=== PATIENT | female | born 1950 | race Caucasian/White ===

== ENCOUNTER 2019-08-16 18:35 | Inpatient (IN) ==
[2019-08-16] MEDS ORDERED: Azithromycin 500 MG in 0.9 % Sodium Chloride 250 ML IVPB ONE (19:15)
[2019-08-16] MEDS ORDERED: cefTRIAXone 1,000 MG in 0.9 % Sodium Chloride Mini Bag 100 ML IVPB ONE (19:15)
[2019-08-16] MEDS ORDERED: Ondansetron 4 MG/2 ML VIAL IVP ONE (19:15)
[2019-08-16 19:24] LABS: Basophils # 0.1 K/mcL (0.0-0.2); Basophils % 0.5 %; Eosinophils # 0.1 K/mcL (0.0-0.6); Eosinophils % 1.3 %; Hematocrit 36.9 % (35.3-44.9); Hemoglobin 12.1 g/dL (11.5-15.4); Immature Granulocytes % 0.6 % (0-4); Lymphocytes # 1.5 K/mcL (0.6-4.6); Lymphocytes % 15.4 %; Mean Corpuscular HGB Conc 32.8 g/dL (31.6-35.5); Mean Corpuscular Hemoglobin 29.2 pg (28.0-33.3); Mean Corpuscular Volume 89.1 fL (83.0-100.0); Mean Platelet Volume 10.2 fL (9.4-12.4); Monocytes # 0.6 K/mcL (0.0-1.3); Monocytes % 6.4 %; Neutrophils # 7.6 K/mcL (1.6-8.9); Platelet Count 231 K/mcL (140-400); Red Blood Count 4.14 M/mcL (3.82-4.97); Red Cell Distribution Width 12.4 % (11.5-14.5); Segmented Neutrophils % 75.8 %
[2019-08-16 19:30] LABS: ABG Base Excess 2 mEq/L (-2 to 3); ABG HCO3 26 mEq/L (21-27); ABG Oxygen Saturation 91 % (95-98); ABG PCO2 36 mmHg (35-45); ABG PH 7.47 pH Units (7.32-7.45); ABG PO2 57 mmHg (85-104); ABG TCO2 27 mEq/L (20-26)
[2019-08-16 19:31] LABS: INR 1.1; Prothrombin Time 12.9 Seconds (9.4-12.1)
[2019-08-16 19:33] LABS: Activated Partial Thrombo Time 31.7 Seconds (26.0-36.0)
--- NOTE | 2019-08-16 19:48 | Emergency Department Note ---
Disposition Clinical Impression: Acute CHF Qualifiers: Heart failure type: unspecified Qualified Code(s): I50.9 - Heart failure, unspecified Pneumonia Qualifiers: Pneumonia type: due to unspecified organism Laterality: unspecified laterality Lung location: unspecified part of lung Qualified Code(s): J18.9 - Pneumonia, unspecified organism Disposition: Admitted As Inpatient Condition: Fair Forms: ED Satisfaction Letter Time of Disposition: 21:15 General Adult HPI - General Chief complaint: ED Chest Pain Stated complaint: CP,MONSALVE Time Seen by Provider: 08/16/19 18:56 Source: patient Nursing Notes Reviewed: Yes Vital Signs Reviewed: Yes - History of Present Illness HPI Narrative: This is a 69-year-old female who presents today with a complaint of generalized body aches, congestion, chest pain for the past 2-3 days. She describes chest pain as aching, nonradiating. She also complains of dyspnea. Patient also describes a slight gradual onset headache for the past day. She denies any focal neurologic complaints. She denies any weakness. She denies any vomiting or diarrhea. She describes symptoms as moderate. There are no obvious aggravating or relieving factors. Pain Scale: 6 Improves with: nothing Worsens with: nothing - Related Data Home Medications Medication Instructions Recorded Confirmed Aspirin 81 mg PO DAILY 08/16/19 08/16/19 Bumetanide [Bumex] 2 mg PO DAILY 08/16/19 08/16/19 Duloxetine HCl 90 mg PO HS 08/16/19 08/16/19 Isosorbide MONOnitrate [Isosorbide 30 mg PO DAILY 08/16/19 08/16/19 Mononitrate ER] LORazepam [Ativan] 0.5 mg PO DAILY PRN 08/16/19 08/16/19 Liraglutide [Victoza 3-Martin] 0.6 mg SQ DAILY 08/16/19 08/16/19 Lisinopril [Zestril] 20 mg PO BID 08/16/19 08/16/19 Rivaroxaban [Xarelto] 20 mg PO QPM 08/16/19 08/16/19 Simvastatin [Zocor] 40 mg PO HS 08/16/19 08/16/19 Spironolactone [Aldactone] 25 mg PO DAILY 08/16/19 08/16/19 Allergies Allergy/AdvReac Type Severity Reaction Status Date / Time Amoxicillin Allergy Irritable Verified 08/16/19 19:32 All systems ED: reviewed and negative except as stated. Constitutional: Reports: fever, chills ENT ED: Reports: congestion Cardiovascular: Reports: chest pain. Denies: palpitations, dyspnea on exertion Respiratory: Reports: cough, dyspnea Gastrointestinal: Denies: abdominal pain, nausea, vomiting Genitourinary: Denies: dysuria, frequency Musculoskeletal: Denies: neck pain Neurological: Reports: headache. Denies: numbness, paresthesias Past Medical History - Past Medical History Medical history: Reports: coronary artery disease, diabetes, hyperlipidemia, myocardial infarction - Social History Smoking Status: Never smoker Alcohol use: Reports: none Drug use: Reports: none Physical Exam - General Limitations: no limitations General appearance: alert - Head Head exam: atraumatic, normocephalic, normal inspection - Eye Eye exam: Present: normal appearance, PERRL, EOMI - Expanded Eye Exam Pupils: Left: reactive - ENT ENT exam: normal exam, normal oropharynx, mucous membranes moist - Expanded ENT Exam External ear exam: Present: normal external inspection Mouth exam: Present: normal external inspection Teeth exam: Present: normal inspection Throat exam: Present: normal inspection - Neck Neck exam: Present: normal inspection, full ROM, trachea midline, other (There is no meningismus.). Absent: meningismus - Chest Chest inspection: Present: normal inspection, symmetric chest wall rise - Respiratory Respiratory exam: Present: respiratory distress, accessory muscle use - Expanded Respiratory Exam Location: rales: Left, Right, rhonchi: Left, Right - Cardiovascular Cardiovascular exam: Present: regular rate, normal rhythm, tachycardia, normal heart sounds, other (There is bilateral peripheral edema.) - Abdominal Exam Abdominal exam: Present: soft, Non-Tender. Absent: tenderness, distention, guarding, rebound, rigidity - Extremities Exam Extremities exam: Present: normal inspection, full ROM, pedal edema. Absent: tenderness - Expanded Upper Extremity Exam Shoulder exam: Present: normal inspection, full ROM Arm exam: Present: normal inspection, full ROM Elbow exam: Present: normal inspection, full ROM Forearm/Wrist exam: Present: normal inspection, full ROM Hand exam: Present: normal inspection, full ROM Vascular exam: Normal: capillary refill, radial pulse - Expanded Lower Extremity Exam Hip/Pelvis exam: Present: normal inspection, full ROM Upper leg exam: Present: normal inspection, full ROM Knee exam: Present: normal inspection, full ROM Lower leg exam: Present: normal inspection, full ROM Ankle exam: Present: normal inspection, full ROM Foot/toe exam: Present: normal inspection, full ROM Neurovascular/Tendon exam: Absent: motor deficit, sensory deficit, tendon de ficit - Back Exam Back exam: Present: normal inspection, full ROM. Absent: tenderness - Neurological Exam Neurological exam: Present: alert, oriented X3, CN II-XII intact, other (There is no motor, sensory or cerebellar deficits. Nonfocal neurologic exam. GCS is 15.). Absent: motor sensory deficit - Expanded Neurological Exam Patient oriented to: Present: person, place, time Coma Scale Eye Opening: Spontaneous Coma Scale Motor Response: Obeys Commands Coma Scale Verbal Response: Oriented Coma Scale Total: 15 - Psychiatric Psychiatric exam: Present: normal affect, normal mood - Skin Skin exam: Present: warm, dry, intact, normal color Course Vital Signs Temperature 101.6 F H 08/16/19 18:42 Pulse Rate 108 08/16/19 18:42 Respiratory Rate 26 08/16/19 18:42 Blood Pressure 185/96 08/16/19 18:42 O2 Sat by Pulse Oximetry 88 08/16/19 18:42 Temperature 100.2 F H 08/16/19 21:09 Pulse Rate 98 08/16/19 21:09 Respiratory Rate 19 08/16/19 21:09 Blood Pressure 167/93 08/16/19 21:09 O2 Sat by Pulse Oximetry 99 08/16/19 21:09 Oxygen Delivery Oxygen Delivery Nasal Cannula Medical Decision Making - [facility] Narrative Medical decision making narrative: Differential diagnoses includes pneumonia versus CHF versus viral syndrome versus UTI. Given fever, tachycardia, hypoxia, patient meets sepsis criteria. We will check a lactate. We will hold off on IV fluids at this time given the concern for possible CHF in light of crackles and peripheral edema. We will also need to rule out acute coronary syndrome given complaints of chest pain. T here is no clinical suspicion for meningitis. EKG shows sinus tachycardia at 108 beats per minute. Normal axis. Normal intervals. No acute injury pattern. 2044 Patient reevaluated. Patient feels better. Chest x-ray is suggestive of CHF. Given that and peripheral edema, I will put her on Lasix. 2100 Patient's care discussed with the hospitalist. Will admit. - Medical Records Medical records reviewed: Yes I reviewed the patient's medical records. - Lab Data Lab results reviewed: Yes I reviewed the patient's lab results. Result diagrams: 08/16/19 19:00 08/16/19 19:00 Lab Results 08/16/19 08/16/19 08/16/19 Range/Units 19:00 19:00 19:00 WBC 10.0 (4.3-11.1) K/mcL RBC 4.14 (3.82-4.97) M/mcL Hgb 12.1 (11.5-15.4) g/dL Hct 36.9 (35.3-44.9) % MCV 89.1 (83.0-100.0) fL MCH 29.2 (28.0-33.3) pg MCHC 32.8 (31.6-35.5) g/dL RDW 12.4 (11.5-14.5) % Plt Count 231 (140-400) K/mcL MPV 10.2 (9.4-12.4) fL Immature Gran % 0.6 (0-4) % Seg Neutrophils % 75.8 % Lymphocytes % 15.4 % Monocytes % 6.4 % Eosinophils % 1.3 % Basophils % 0.5 % Neutrophils # 7.6 (1.6-8.9) K/mcL Lymphocytes # 1.5 (0.6-4.6) K/mcL Monocytes # 0.6 (0.0-1.3) K/mcL Eosinophils # 0.1 (0.0-0.6) K/mcL Basophils # 0.1 (0.0-0.2) K/mcL PT 12.9 H (9.4-12.1) Seconds INR 1.1 APTT 31.7 (26.0-36.0) Seconds Sample Site ABG pH (7.32-7.45) pH Units ABG pCO2 (35-45) mmHg ABG pO2 (85-104) mmHg ABG HCO3 (21-27) mEq/L ABG Total CO2 (20-26) mEq/L ABG O2 Saturation (95-98) % ABG Base Excess (-2 to 3) mEq/L Cleve Test O2 Delivery Device Inspired O2 (1-15=lpm [id number]=%) Sodium 137 (136-145) mEq/L Potassium 4.2 (3.5-5.1) mEq/L Chloride 101 (98-107) mEq/L Carbon Dioxide 26 (23-29) mEq/L BUN 24 H (8-23) mg/dL Creatinine 0.79 (0.60-1.20) mg/dL Est GFR ( Amer) > 60 (> 60) Est GFR (Non-Af Amer) > 60 (> 60) BUN/Creatinine Ratio 30 H (6-26) Glucose 414 H (70-105) mg/dL Calculated Osmolality 306 H (280-300) Lactic Acid (0.5-2.2) mmol/L Calcium 9.7 (8.6-10.3) mg/dL Phosphorus 2.6 L (2.7-4.5) mg/dL Magnesium 1.6 (1.6-2.6) mg/dL Total Bilirubin 0.5 (0.3-1.0) mg/dL Direct Bilirubin 0.1 (0.0-0.2) mg/dL Indirect Bilirubin 0.4 (0.0-1.2) mg/dL AST 13 (13-39) Units/L ALT 13 (7-52) Units/L Alkaline Phosphatase 85 (34-104) Units/L Troponin I < 0.03 (< 0.04) ng/mL B-Natriuretic Peptide (Less than 100) pg/mL Serum Total Protein 7.2 (6.4-8.9) g/dL Albumin 4.1 (3.5-5.7) g/dL Globulin 3.1 (2.4-3.5) g/dL Albumin/Globulin Ratio 1.3 (1.1-2.2) Urine Color (Yellow) Urine Clarity (Clear) Urine pH (5.0-8.0) pH Units Ur Specific [place] (1.010-1.025) Urine Protein (Neg-Trace) mg/dL Urine Glucose (UA) (Normal) mg/dL Urine Ketones (Negative) mg/dL Urine Blood (Negative) Urine Nitrite (Negative) Urine Bilirubin (Negative) Urine Urobilinogen (Normal) mg/dL Ur Leukocyte Esterase (Negative) Urine Microscopic RBC (0-3) per hpf Urine Microscopic WBC (0-3) per hpf Ur Squamous Epith Cells (None-Few) per lpf Urine Bacteria (None-Few) per hpf Hyaline Casts (None-Few) per lpf Ur Culture Indicated? (NO) 08/16/19 08/16/19 08/16/19 Range/Units 19:00 19:05 19:26 WBC (4.3-11.1) K/mcL RBC (3.82-4.97) M/mcL Hgb (11.5-15.4) g/dL Hct (35.3-44.9) % MCV (83.0-100.0) fL MCH (28.0-33.3) pg MCHC (31.6-35.5) g/dL RDW (11.5-14.5) % Plt Count (140-400) K/mcL MPV (9.4-12.4) fL Immature Gran % (0-4) % Seg Neutrophils % % Lymphocytes % % Monocytes % % Eosinophils % % Basophils % % Neutrophils # (1.6-8.9) K/mcL Lymphocytes # (0.6-4.6) K/mcL Monocytes # (0.0-1.3) K/mcL Eosinophils # (0.0-0.6) K/mcL Basophils # (0.0-0.2) K/mcL PT (9.4-12.1) Seconds INR APTT (26.0-36.0) Seconds Sample Site R Radial ABG pH 7.47 H (7.32-7.45) pH Units ABG pCO2 36 (35-45) mmHg ABG pO2 57 L (85-104) mmHg ABG HCO3 26 (21-27) mEq/L ABG Total CO2 27 H (20-26) mEq/L ABG O2 Saturation 91 L (95-98) % ABG Base Excess 2 (-2 to 3) mEq/L Cleve Test Positive O2 Delivery Device Cannula Inspired O2 40.0 (1-15=lpm [id number]=%) Sodium (136-145) mEq/L Potassium (3.5-5.1) mEq/L Chloride (98-107) mEq/L Carbon Dioxide (23-29) mEq/L BUN (8-23) mg/dL Creatinine (0.60-1.20) mg/dL Est GFR ( Amer) (> 60) Est GFR (Non-Af Amer) (> 60) BUN/Creatinine Ratio (6-26) Glucose (70-105) mg/dL Calculated Osmolality (280-300) Lactic Acid 2.6 H (0.5-2.2) mmol/L Calcium (8.6-10.3) mg/dL Phosphorus (2.7-4.5) mg/dL Magnesium (1.6-2.6) mg/dL Total Bilirubin (0.3-1.0) mg/dL Direct Bilirubin (0.0-0.2) mg/dL Indirect Bilirubin (0.0-1.2) mg/dL AST (13-39) Units/L ALT (7-52) Units/L Alkaline Phosphatase (34-104) Units/L Troponin I (< 0.04) ng/mL B-Natriuretic Peptide 145 H (Less than 100) pg/mL Serum Total Protein (6.4-8.9) g/dL Albumin (3.5-5.7) g/dL Globulin (2.4-3.5) g/dL Albumin/Globulin Ratio (1.1-2.2) Urine Color (Yellow) Urine Clarity (Clear) Urine pH (5.0-8.0) pH Units Ur Specific [place] (1.010-1.025) Urine Protein (Neg-Trace) mg/dL Urine Glucose (UA) (Normal) mg/dL Urine Ketones (Negative) mg/dL Urine Blood (Negative) Urine Nitrite (Negative) Urine Bilirubin (Negative) Urine Urobilinogen (Normal) mg/dL Ur Leukocyte Esterase (Negative) Urine Microscopic RBC (0-3) per hpf Urine Microscopic WBC (0-3) per hpf Ur Squamous Epith Cells (None-Few) per lpf Urine Bacteria (None-Few) per hpf Hyaline Casts (None-Few) per lpf Ur Culture Indicated? (NO) 08/16/19 Range/Units 20:48 WBC (4.3-11.1) K/mcL RBC (3.82-4.97) M/mcL Hgb (11.5-15.4) g/dL Hct (35.3-44.9) % MCV (83.0-100.0) fL MCH (28.0-33.3) pg MCHC (31.6-35.5) g/dL RDW (11.5-14.5) % Plt Count (140-400) K/mcL MPV (9.4-12.4) fL Immature Gran % (0-4) % Seg Neutrophils % % Lymphocytes % % Monocytes % % Eosinophils % % Basophils % % Neutrophils # (1.6-8.9) K/mcL Lymphocytes # (0.6-4.6) K/mcL Monocytes # (0.0-1.3) K/mcL Eosinophils # (0.0-0.6) K/mcL Basophils # (0.0-0.2) K/mcL PT (9.4-12.1) Seconds INR APTT (26.0-36.0) Seconds Sample Site ABG pH (7.32-7.45) pH Units ABG pCO2 (35-45) mmHg ABG pO2 (85-104) mmHg ABG HCO3 (21-27) mEq/L ABG Total CO2 (20-26) mEq/L ABG O2 Saturation (95-98) % ABG Base Excess (-2 to 3) mEq/L Cleve Test O2 Delivery Device Inspired O2 (1-15=lpm [id number]=%) Sodium (136-145) mEq/L Potassium (3.5-5.1) mEq/L Chloride (98-107) mEq/L Carbon Dioxide (23-29) mEq/L BUN (8-23) mg/dL Creatinine (0.60-1.20) mg/dL Est GFR ( Amer) (> 60) Est GFR (Non-Af Amer) (> 60) BUN/Creatinine Ratio (6-26) Glucose (70-105) mg/dL Calculated Osmolality (280-300) Lactic Acid (0.5-2.2) mmol/L Calcium (8.6-10.3) mg/dL Phosphorus (2.7-4.5) mg/dL Magnesium (1.6-2.6) mg/dL Total Bilirubin (0.3-1.0) mg/dL Direct Bilirubin (0.0-0.2) mg/dL Indirect Bilirubin (0.0-1.2) mg/dL AST (13-39) Units/L ALT (7-52) Units/L Alkaline Phosphatase (34-104) Units/L Troponin I (< 0.04) ng/mL B-Natriuretic Peptide (Less than 100) pg/mL Serum Total Protein (6.4-8.9) g/dL Albumin (3.5-5.7) g/dL Globulin (2.4-3.5) g/dL Albumin/Globulin Ratio (1.1-2.2) Urine Color Yellow (Yellow) Urine Clarity Clear (Clear) Urine pH 6.5 (5.0-8.0) pH Units Ur Specific [place] 1.026 H (1.010-1.025) Urine Protein >=300 H (Neg-Trace) mg/dL Urine Glucose (UA) >=1000 H (Normal) mg/dL Urine Ketones Negative (Negative) mg/dL Urine Blood Large H (Negative) Urine Nitrite Negative (Negative) Urine Bilirubin Negative (Negative) Urine Urobilinogen Normal (Normal) mg/dL Ur Leukocyte Esterase Negative (Negative) Urine Microscopic RBC 50-100 H (0-3) per hpf Urine Microscopic WBC 5-15 H (0-3) per hpf Ur Squamous Epith Cells Many H (None-Few) per lpf Urine Bacteria Few (None-Few) per hpf Hyaline Casts None Seen (None-Few) per lpf Ur Culture Indicated? YES A (NO) - Radiology Data Radiology results reviewed: Yes I reviewed the patient's radiology results.
[2019-08-16 19:50] LABS: Alanine Aminotransferase 13 Units/L (7-52); Albumin 4.1 g/dL (3.5-5.7); Albumin/Globulin Ratio 1.3 (1.1-2.2); Alkaline Phosphatase 85 Units/L (34-104); Aspartate Amino Transferase 13 Units/L (13-39); BUN/Creatinine Ratio 30 (6-26); Bilirubin,Direct 0.1 mg/dL (0.0-0.2); Bilirubin,Indirect 0.4 mg/dL (0.0-1.2); Bilirubin,Total 0.5 mg/dL (0.3-1.0); Blood Urea Nitrogen 24 mg/dL (8-23); Calcium 9.7 mg/dL (8.6-10.3); Carbon Dioxide 26 mEq/L (23-29); Chloride 101 mEq/L (98-107); Globulin 3.1 g/dL (2.4-3.5); Glucose 414 mg/dL (70-105); Magnesium 1.6 mg/dL (1.6-2.6); Osmolality,Calculated 306 (280-300); Phosphorous 2.6 mg/dL (2.7-4.5); Potassium 4.2 mEq/L (3.5-5.1); Sodium 137 mEq/L (136-145); Total Protein 7.2 g/dL (6.4-8.9); Troponin I < 0.03 ng/mL (< 0.04); eGFR For African Americans > 60 (> 60); eGFR For Non-African Americans > 60 (> 60)
[2019-08-16] MEDS ORDERED: Acetaminophen 325 MG TABLET PO ONE (20:06)
[2019-08-16] MEDS ORDERED: 0.9 % Sodium Chloride 250 ML ONE (20:33)
[2019-08-16] MEDS ORDERED: Furosemide 40 MG in 0.9 % Sodium Chloride 50 ML IV STA (20:35)
[2019-08-16] MEDS ORDERED: Furosemide 40 MG/4 ML VIAL IVP ONE (20:45)
[2019-08-16 20:54] LABS: Bilirubin,Urine Negative (Negative); Blood,Urine Large (Negative); Clarity,Urine Clear (Clear); Color,Urine Yellow (Yellow); Glucose,Urine (UA) >=1000 mg/dL (Normal); Ketones,Urine Negative (Negative); Leukocyte Esterase,Urine Negative (Negative); Nitrite,Urine Negative (Negative); PH,Urine 6.5 pH Units (5.0-8.0); Protein,Urine >=300 mg/dL (Neg-Trace); Specific Gravity,Urine 1.026 (1.010-1.025); Urobilinogen,Urine Normal (Normal)
[2019-08-16 20:58] LABS: Bacteria,Urine Few per hpf (None-Few); Hyaline Casts,Urine None Seen per lpf (None-Few); RBC,Urine 50-100 per hpf (0-3); Squamous Epithelial Cell,Urine Many per lpf (None-Few)
[2019-08-16] MEDS ORDERED: Insulin Human Regular 10 UNIT in 0.9 % Sodium Chloride 10 ML IV ONE (21:02)
[2019-08-16] MEDS ORDERED: GuaiFENesin Liq 200 MG/10 ML UDC PO PRN (22:02)
[2019-08-16] MEDS ORDERED: Acetaminophen 325 MG TABLET PO PRN (22:02)
[2019-08-16] MEDS ORDERED: Ondansetron 4 MG/2 ML VIAL IVP PRN (22:02)
[2019-08-16] MEDS ORDERED: *HR* LORazepam 0.5 MG TABLET PO PRN (22:04)
[2019-08-16] MEDS ORDERED: *HR* Dextrose 50 % in Water (Syg) 50 ML SYRINGE IVP PRN (22:09)
[2019-08-16] MEDS ORDERED: Dextrose Gel 15 GM/37.5 ML TUBE PO PRN ×2 (22:09)
[2019-08-16] MEDS ORDERED: Isovue-370 500 ML BOTTLE IVP ONE (22:23)
--- NOTE | 2019-08-16 23:28 | Internal Med History&Physical ---
Date of Encounter: 08/16/19 Time of Encounter: 23:27 Internal Medicine - H&P: HPI Chief complaint: fever Admitted From: Home Plans for Post Hospital Care: Home History of present illness: Patient not very forthcoming with information so a lot of history is obtained from family members at bedside. Kaylyn Lopez is a 69-year-old woman with hypertension, diabetes, coronary artery disease and obstructive sleep apnea who is brought to the emergency room with complaints of generalized body aches, facial congestion, chest pain, chills, headaches and shortness of breath that has been present for the last 2-3 days. Family members state that when they saw her this afternoon she appeared unwell but she denied any complaints so they went out to lunch but due to her overall appearance and notable discomfort they asked her again at which time she confessed feeling very ill so she was brought to the emergency room. On arrival she was found febrile at 101.6 and tachycardic. She was also hypoxic and required high volume nasal cannula. A chest x-ray was done which reported findings of pulmonary vascular congestion for which reason the ER physician gave her a dose of furosemide 40 mg. Lab work was grossly unremarkable except a mildly hyperglycemic state, lactic acid 2.6 and glucosuria. She was referred f or admission. Upon my evaluation she appeared notably fatigued with a flushed face. She reported feeling tired and having generalized myalgias and arthralgias. She says she lives alone and has no sick contacts. Vitals: Reviewed General: Obese white woman who appears fatigued lying in bed in no acute distress. Skin: Warm, flushed and dry. HEENT: Dry mucous membranes. No conjunctivae pallor. Neck: No lymphadenopathy. No JVD. No carotid bruits. No palpable thyroid. Chest: Normal thoracic expansion. No wheezes, rales or rhonchi. Heart: Normal S1/S2. Abdomen: distended, soft and non-tender to palpation. No peritoneal reaction. Extremities: No clubbing, cyanosis or edema. Right leg with the medial aspect surgical incision scar stemming from a previous fasciotomy. Neurological: Somnolent but oriented to person, place and time. No focal deficits. Psych: Affect flat. Assessment/Plan 1. Sepsis syndrome: As evidenced by fever, tachycardia, tachypnea and elevated lactic acid. Suspect secondary to an upper respiratory illness given the generalized constitutional symptoms present. No focal evidence of a pneumonia on x-ray, no signs of skin/soft tissue infection on physical exam, no signs of urinary tract infection both based on symptoms and UA. Will get a chest CT for more thorough evaluation to ensure there is no pneumonic consolidation. In the interim blood cultures have been obtained and she received an empiric dose of ceftriaxone and azithromycin. Check a respiratory infection panel to rule out a viral entity. Trend lactic acid. Antipyretics/analgesics as needed for now. 2. Dehydration: As noted on physical exam and corroborated by an elevated urinary specific gravity. Unfortunately she was given an intravenous diuretic simply based on the chest x-ray but her clinical appearance is that of a dehydrated state. Even the concomitant of sepsis as well and we will administer 2 liters of fluids overnight. 3. Hypertension: On lisinopril. She is seen to be on bumetanide and spironolactone as well for unclear reason; we will obtain an echo in the morning to assess her EF he may have underlying heart failure that she is not reporting. 4. Diabetes: Poorly controlled as evidenced by her hyperglycemic values. We will place on medium dose insulin sliding scale. 5. Coronary artery disease: s/p 2 stents. On aspirin and long-acting nitrates. 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 Past Med Surg Social Fam HX - Past Medical History Medical history: coronary artery disease, diabetes, hyperlipidemia, myocardial infarction - Past Surgical History Additional surgical history: skin graft, stents x2 - Social History Smoking Status: Never smoker Smokeless Tobacco Status: No Alcohol use: none Drug use: none - Family History Mother Hx Family Cancer: Yes Internal Medicine - H&P: Meds Aspirin 81 mg PO DAILY 08/16/19 [History] Bumetanide [Bumex] 2 mg PO DAILY 08/16/19 [History] Duloxetine HCl 90 mg PO HS 08/16/19 [History] Isosorbide MONOnitrate [Isosorbide Mononitrate ER] 30 mg PO DAILY 08/16/19 [History] LORazepam [Ativan] 0.5 mg PO DAILY PRN 08/16/19 [History] Liraglutide [Victoza 3-Martin] 0.6 mg SQ DAILY 08/16/19 [History] Lisinopril [Zestril] 20 mg PO BID 08/16/19 [History] Rivaroxaban [Xarelto] 20 mg PO QPM 08/16/19 [History] Simvastatin [Zocor] 40 mg PO HS 08/16/19 [History] Spironolactone [Aldactone] 25 mg PO DAILY 08/16/19 [History] Allergy/AdvReac Type Severity Reaction Status Date / Time Amoxicillin Allergy Irritable Verified 08/16/19 19:32 All Systems PM: A 10-system review of systems was performed and is negative for pertinent findings except as documented above in the HPI. - Constitutional Vitals: Temp Pulse Resp BP Pulse Ox 99 F 92 24 149/79 97 08/16/19 22:30 08/16/19 22:30 08/16/19 22:30 08/16/19 22:30 08/16/19 22:30 Exam: . Internal Med - H&P Results - Labs CBC & Chem 7: 08/16/19 19:00 08/16/19 19:00 Labs: Short CBC 08/16/19 Range/Units 19:00 WBC 10.0 (4.3-11.1) K/mcL Hgb 12.1 (11.5-15.4) g/dL Hct 36.9 (35.3-44.9) % Plt Count 231 (140-400) K/mcL Neutrophils # 7.6 (1.6-8.9) K/mcL BMP 08/16/19 19:00 Sodium 137 Potassium 4.2 Chloride 101 Carbon Dioxide 26 BUN 24 H Creatinine 0.79 Glucose 414 H Calcium 9.7 Cardiac Enzymes 08/16/19 Range/Units 19:00 Troponin I < 0.03 (< 0.04) ng/mL Liver Function 08/16/19 Range/Units 19:00 Total Bilirubin 0.5 (0.3-1.0) mg/dL Direct Bilirubin 0.1 (0.0-0.2) mg/dL AST 13 (13-39) Units/L ALT 13 (7-52) Units/L Alkaline Phosphatase 85 (34-104) Units/L Albumin 4.1 (3.5-5.7) g/dL Urine 08/16/19 Range/Units 20:48 Urine Color Yellow (Yellow) Urine Clarity Clear (Clear) Urine pH 6.5 (5.0-8.0) pH Units Ur Specific [place] 1.026 H (1.010-1.025) Urine Protein >=300 H (Neg-Trace) mg/dL Urine Glucose (UA) >=1000 H (Normal) mg/dL - ABG Interpretation ABG results: 08/16/19 19:26 ABG pH 7.47 H ABG pCO2 36 ABG pO2 57 L ABG HCO3 26 ABG Total CO2 27 H ABG O2 Saturation 91 L ABG Base Excess 2 - Impressions ITS Impressions Chest X-Ray 08/16/19 19:45 IMPRESSION: 1. Congestive heart failure is most likely given the radiographic findings. Associated small volume pleural effusion evident bilateral. 2. Calcific atherosclerosis aorta. 3. Cardiomegaly. D/ / Robert Urbina / Robert Urbina Interpreting Provider: Robert Urbina - Time Spent With Patient Total time spent is greater than 50% in coordination of care (as documented) at patient's floor/unit and/or counseling patient:
[2019-08-16] MEDS: 0.9 % Sodium Chloride 1,000 ML IVC SCH (23:52)
[2019-08-17 02:19] LABS: Adenovirus Not Detected (Not Detect); Bordetella Pertussis Not Detected (Not Detect); Chlamydophila pneumoniae Not Detected (Not Detect); Coronavirus 229E Not Detected (Not Detect); Coronavirus HKU1 Not Detected (Not Detect); Coronavirus NL63 Not Detected (Not Detect); Coronavirus OC43 Not Detected (Not Detect); Human Metapneumovirus Not Detected (Not Detect); Human Rhinovirus/Enterovirus DETECTED (Not Detect); Influenza A Subtype 2009 H1 Not Detected (Not Detect); Influenza A Untypeable Not Detected (Not Detect); Influenza B Not Detected (Not Detect); Mycoplasma pneumoniae Not Detected (Not Detect); Parainfluenza Virus 1 Not Detected (Not Detect); Parainfluenza Virus 2 Not Detected (Not Detect); Parainfluenza Virus 3 Not Detected (Not Detect); Parainfluenza Virus 4 Not Detected (Not Detect); Respiratory Syncytial Virus Not Detected (Not Detect)
[2019-08-17] MEDS ORDERED: 0.9 % Sodium Chloride 1,000 ML ONE (02:30)
[2019-08-17] MEDS: 0.9 % Sodium Chloride 1,000 ML IVC SCH (02:31)
[2019-08-17] MEDS: Insulin LISPRO 300 UNITS/3 ML VIAL SQ SCH ×4 (08:16→22:16)
[2019-08-17] MEDS: Lisinopril 20 MG TABLET PO SCH (08:17)
[2019-08-17] MEDS: Insulin DETEMIR 100 UNIT/ML X5UNITS SQ SCH ×2 (08:17→22:16)
[2019-08-17] MEDS: Isosorbide MONOnitrate (24 HR) 30 MG TAB.ER.24H PO SCH (08:17)
[2019-08-17] MEDS: Aspirin 81 MG TAB.CHEW PO SCH (08:17)
[2019-08-17] MEDS ORDERED: D5% in Water 1,000 ML IVC PRN (08:18)
--- NOTE | 2019-08-17 10:15 | Internal Med Progress Note ---
Hospitalist Progress Note - Encounter Date of Encounter: 08/17/19 Time of Encounter: 08:00 - Subjective Interval History: H&P reviewed. 69 year old female with hx of HTN, DM, CAD, RODNEY, was admitted overnight due to generalized malaise and fever. She was also noted to be mildly hypoxic at 88% on RA. Was given IV lasix initially followed by IVF due to lactic acidosis, after which it normalized. Continues to report generalized bodyaches but denies any chest pain, cough, sputum production, or chills. No abdominal pain, change in bowel habits, or dysuria. - Exam Vitals: Temp Pulse Resp BP Pulse Ox 98.8 F 82 26 130/81 95 08/17/19 06:40 08/17/19 06:40 08/17/19 08:26 08/17/19 06:40 08/17/19 06:40 Exam: Vitals: Reviewed General: Obese, mild distress Skin: Warm, flushed and dry. Chest: Normal thoracic expansion. No wheezes, rales or rhonchi. Heart: Normal S1/S2. Abdomen: soft, non-tender Neurological: No focal deficits. Psych: Anxious - Assessment and Plan (1) Sepsis Current Visit: Yes Status: Acute Assessment and Plan: Presented with fever, tachycardia, and tachypnea entero/rhinovirus +ve, no evidence of PNA on CT but did show mild bronchial wall thickening Urinalysis unremarkable except for proteinuria and glucosuria no leukocytosis likely related to viral infection, was given IV Scar/azithromycin in the ED yesterday. WIll complete 5 days of azithromycin for bronchitis Follow-up on blood culture (2) Bronchitis Current Visit: Yes Status: Acute Assessment and Plan: empiric azithromycin x 5 days (3) CHF (congestive heart failure) Current Visit: Yes Status: Acute Assessment and Plan: there was a question of pulmonary edema secondary to congestive heart failure on imaging studies BNP minimally elevated at 145 was given lasix overnight, will hold off for today while waiting for echocardiogram (4) Diabetes Current Visit: Yes Status: Chronic Assessment and Plan: Hold off on Victoza medium dose sliding scale, add basal insulin 10U BID (5) HTN (hypertension) Current Visit: Yes Status: Chronic Assessment and Plan: Resume home meds (6) RODNEY (obstructive sleep apnea) Current Visit: Yes Status: Acute (7) History of venous thromboembolism Current Visit: Yes Status: Chronic Assessment and Plan: on Xarelto DVT Prophylaxis: on Xarelto - Time Spent with Patient Total time spent is greater than 50% in coordination of care (as documented) at patient's floor/unit and/or counseling patient: 25 - 35 minutes Plan of Care Discussed with: patient Internal Medicine: Result - Labs CBC & Chem 7: 08/16/19 19:00 08/16/19 19:00 Labs: Short CBC 08/16/19 Range/Units 19:00 WBC 10.0 (4.3-11.1) K/mcL Hgb 12.1 (11.5-15.4) g/dL Hct 36.9 (35.3-44.9) % Plt Count 231 (140-400) K/mcL Neutrophils # 7.6 (1.6-8.9) K/mcL BMP 08/16/19 19:00 Sodium 137 Potassium 4.2 Chloride 101 Carbon Dioxide 26 BUN 24 H Creatinine 0.79 Glucose 414 H Calcium 9.7 Cardiac Enzymes 08/16/19 Range/Units 19:00 Troponin I < 0.03 (< 0.04) ng/mL Liver Function 08/16/19 Range/Units 19:00 Total Bilirubin 0.5 (0.3-1.0) mg/dL Direct Bilirubin 0.1 (0.0-0.2) mg/dL AST 13 (13-39) Units/L ALT 13 (7-52) Units/L Alkaline Phosphatase 85 (34-104) Units/L Albumin 4.1 (3.5-5.7) g/dL Urine 08/16/19 Range/Units 20:48 Urine Color Yellow (Yellow) Urine Clarity Clear (Clear) Urine pH 6.5 (5.0-8.0) pH Units Ur Specific [place] 1.026 H (1.010-1.025) Urine Protein >=300 H (Neg-Trace) mg/dL Urine Glucose (UA) >=1000 H (Normal) mg/dL - ABG Interpretation ABG results: ABG ABG pH 7.47 pH Units (7.32-7.45) H 08/16/19 19:26 ABG pCO2 36 mmHg (35-45) 08/16/19 19:26 ABG pO2 57 mmHg (85-104) L 08/16/19 19:26 ABG O2 Saturation 91 % (95-98) L 08/16/19 19:26 PT/INR, D-dimer PT 12.9 Seconds (9.4-12.1) H 08/16/19 19:00 - Impressions Impressions Chest X-Ray 08/16/19 19:45 IMPRESSION: 1. Congestive heart failure is most likely given the radiographic findings. Associated small volume pleural effusion evident bilateral. 2. Calcific atherosclerosis aorta. 3. Cardiomegaly. D/ / Robert Urbina / Robert Urbina Interpreting Provider: Robert Urbina Chest CT 08/17/19 00:42 IMPRESSION: 1. Pulmonary edema likely due to congestive heart failure given mild cardiomegaly and trace bilateral pleural effusions. 2. Minimal to mild bronchial wall thickening likely due to pulmonary vascular congestion but also potentially due to reactive airways disease or bronchitis. 3. Additional incidental findings as above. D/ / Eliezer Joyner MD / Eliezer Joyner MD Interpreting Provider: Eliezer Joyner MD - VTE Documentation of Mechanical Device: Graduated compression elastic hosiery Consult Discharge Plan - Plan Referrals: Mina Spencer MD [Primary Care Provider] - __ (1) Sepsis Qualifiers: Sepsis type: sepsis due to unspecified organism Sepsis acute organ dysfunction status: without acute organ dysfunction Qualified Code(s): A41.9 - Sepsis, unspecified organism (3) CHF (congestive heart failure) Qualifiers: Heart failure type: unspecified Heart failure chronicity: unspecified Qualified Code(s): I50.9 - Heart failure, unspecified (4) Diabetes Qualifiers: Diabetes mellitus type: type 2 Diabetes mellitus group home insulin use: without group home use Diabetes mellitus complication status: without complication Qualified Code(s): E11.9 - Type 2 diabetes mellitus without c omplications (5) HTN (hypertension) Qualifiers: Hypertension type: essential hypertension Qualified Code(s): I10 - Essential (primary) hypertension
[2019-08-17] MEDS: Azithromycin 250 MG TABLET PO SCH (12:37)
[2019-08-17] MEDS ORDERED: *HR* Rivaroxaban 10 MG TABLET PO SCH (18:00)
[2019-08-18 07:02] LABS: Basophils % 0.5 %; Eosinophils # 0.2 K/mcL (0.0-0.6); Eosinophils % 2.5 %; Hematocrit 30.2 % (35.3-44.9); Immature Granulocytes % 0.6 % (0-4); Lymphocytes # 1.7 K/mcL (0.6-4.6); Lymphocytes % 19.9 %; Mean Corpuscular HGB Conc 32.1 g/dL (31.6-35.5); Mean Corpuscular Hemoglobin 29.3 pg (28.0-33.3); Mean Corpuscular Volume 91.2 fL (83.0-100.0); Mean Platelet Volume 10.4 fL (9.4-12.4); Monocytes # 0.7 K/mcL (0.0-1.3); Monocytes % 8.1 %; Neutrophils # 5.7 K/mcL (1.6-8.9); Platelet Count 206 K/mcL (140-400); Red Blood Count 3.31 M/mcL (3.82-4.97); Red Cell Distribution Width 12.4 % (11.5-14.5); Segmented Neutrophils % 68.4 %; White Blood Count 8.4 K/mcL (4.3-11.1)
[2019-08-18 07:06] LABS: Hemoglobin 9.7 g/dL (11.5-15.4)
[2019-08-18 07:17] LABS: Calcium 8.7 mg/dL (8.6-10.3); Magnesium 1.9 mg/dL (1.6-2.6); Potassium 4.5 mEq/L (3.5-5.1)
[2019-08-18] MEDS: Isosorbide MONOnitrate (24 HR) 30 MG TAB.ER.24H PO SCH (07:58)
[2019-08-18] MEDS: Aspirin 81 MG TAB.CHEW PO SCH (07:58)
[2019-08-18] MEDS: Lisinopril 20 MG TABLET PO SCH (07:58)
[2019-08-18] MEDS: Insulin LISPRO 300 UNITS/3 ML VIAL SQ SCH ×4 (07:59→20:07)
[2019-08-18] MEDS: Insulin DETEMIR 100 UNIT/ML X5UNITS SQ SCH ×2 (08:58→20:07)
[2019-08-18] MEDS: Azithromycin 250 MG TABLET PO SCH (08:58)
--- NOTE | 2019-08-18 09:39 | Internal Med Progress Note ---
Hospitalist Progress Note - Encounter Date of Encounter: 08/18/19 Time of Encounter: 08:00 - Subjective Interval History: Patient states that she feels stronger today. Denies any chest pain, shortness of breath, hematemesis, hemoptysis, melena, hematochezia, or bright red blood per rectum. Remain afebrile >24 hrs - Exam Vitals: Temp Pulse Resp BP Pulse Ox 97.5 F L 78 16 115/72 90 08/18/19 06:58 08/18/19 06:58 08/18/19 06:58 08/18/19 06:58 08/18/19 06:58 Exam: Vitals: Reviewed General: Obese, not in distress Chest: Clear to auscultation. No wheezes, rales or rhonchi. Heart: Normal S1/S2, no murmur Abdomen: soft, non-tender Neurological: No focal deficits. - Assessment and Plan (1) Sepsis Current Visit: Yes Status: Acute Assessment and Plan: Presented with fever, tachycardia, and tachypnea entero/rhinovirus +ve, no evidence of PNA on CT but did show mild bronchial wall thickening Urinalysis unremarkable except for proteinuria and glucosuria no leukocytosis likely related to viral infection, complete 5 days of azithromycin for bronch itis Follow-up on blood cultures (2) FELY (acute kidney injury) Current Visit: Yes Status: Acute Assessment and Plan: Cr increased from 0.79 to 1.3, was initially given lasix for the concern for decompensated heart failure initialy urinalysis also showed proteinuria and glucosuria hold lasix, will not administer any IVF today in view of limb swelling. Encourage PO fluid intake if Cr continues to get worsen, may need further imaging and urine studies (3) Anemia Current Visit: Yes Status: Acute Assessment and Plan: Hb 12.1 - 9.79 without any signs and symptoms of GIB. Hemodynamically stable trend H&H and obtain iron profile (4) Bronchitis Current Visit: Yes Status: Acute Assessment and Plan: empiric azithromycin x 5 days (5) CHF (congestive heart failure) Current Visit: Yes Status: Acute Assessment and Plan: there was a question of pulmonary edema secondary to congestive heart failure on imaging studies BNP minimally elevated at 145 was given lasix on presentation and now developed FELY. Hold off on further diuretics echocardiogram pending (6) Diabetes Current Visit: Yes Status: Chronic Assessment and Plan: Hold off on Victoza medium dose sliding scale and will increase basal insulin to 20U BID (7) HTN (hypertension) Current Visit: Yes Status: Chronic Assessment and Plan: hold off on erasmo-i (8) RODNEY (obstructive sleep apnea) Current Visit: Yes Status: Acute (9) History of venous thromboembolism Current Visit: Yes Status: Chronic Assessment and Plan: will hold Xarelto for tonight due to anemia DVT Prophylaxis: EPCD - Time Spent with Patient Total time spent is greater than 50% in coordination of care (as documented) at patient's floor/unit and/or counseling patient: Greater than 35 minutes Plan of Care Discussed with: patient Internal Medicine: Result - Labs CBC & Chem 7: 08/18/19 06:19 08/18/19 06:19 Labs: Short CBC 08/18/19 Range/Units 06:19 WBC 8.4 (4.3-11.1) K/mcL Hgb 9.7 L D (11.5-15.4) g/dL Hct 30.2 L (35.3-44.9) % Plt Count 206 (140-400) K/mcL Neutrophils # 5.7 (1.6-8.9) K/mcL BMP 08/18/19 06:19 Sodium 136 Potassium 4.5 Chloride 103 Carbon Dioxide 26 BUN 46 H Creatinine 1.39 H Glucose 263 H Calcium 8.7 - ABG Interpretation ABG results: ABG ABG pH 7.47 pH Units (7.32-7.45) H 08/16/19 19:26 ABG pCO2 36 mmHg (35-45) 08/16/19 19:26 ABG pO2 57 mmHg (85-104) L 08/16/19 19:26 ABG O2 Saturation 91 % (95-98) L 08/16/19 19:26 PT/INR, D-dimer PT 12.9 Seconds (9.4-12.1) H 08/16/19 19:00 - VTE Documentation of Mechanical Device: Graduated compression elastic hosiery Consult Discharge Plan - Plan Referrals: Mina Spencer MD [Primary Care Provider] - (1) Sepsis Qualifiers: Sepsis type: sepsis due to unspecified organism Sepsis acute organ dys function status: without acute organ dysfunction Qualified Code(s): A41.9 - Sepsis, unspecified organism (3) Anemia Qualifiers: Anemia type: unspecified type Qualified Code(s): D64.9 - Anemia, unspecified (5) CHF (congestive heart failure) Qualifiers: Heart failure type: unspecified Heart failure chronicity: unspecified Qualified Code(s): I50.9 - Heart failure, unspecified (6) Diabetes Qualifiers: Diabetes mellitus type: type 2 Diabetes mellitus snf insulin use: without watermelon inspector use Diabetes mellitus complication status: without complication Qualified Code(s): E11.9 - Type 2 diabetes mellitus without complications (7) HTN (hypertension) Qualifiers: Hypertension type: essential hypertension Qualified Code(s): I10 - Essential (primary) hypertension
[2019-08-18 13:31] LABS: Hematocrit 30.7 % (35.3-44.9); Hemoglobin 10.1 g/dL (11.5-15.4)
[2019-08-18 13:50] LABS: % Iron Saturation 14 % (15-50); Iron 35 mcg/dL (50-170); Transferrin 180 mg/dL (203-362)
[2019-08-19 05:48] LABS: Basophils % 0.5 %; Eosinophils # 0.3 K/mcL (0.0-0.6); Eosinophils % 3.5 %; Hemoglobin 9.8 g/dL (11.5-15.4); Immature Granulocytes % 0.7 % (0-4); Lymphocytes # 1.8 K/mcL (0.6-4.6); Lymphocytes % 21.7 %; Mean Corpuscular HGB Conc 32.7 g/dL (31.6-35.5); Mean Corpuscular Hemoglobin 29.4 pg (28.0-33.3); Mean Corpuscular Volume 90.1 fL (83.0-100.0); Mean Platelet Volume 10.5 fL (9.4-12.4); Monocytes # 0.6 K/mcL (0.0-1.3); Monocytes % 7.2 %; Neutrophils # 5.3 K/mcL (1.6-8.9); Platelet Count 210 K/mcL (140-400); Red Blood Count 3.33 M/mcL (3.82-4.97); Red Cell Distribution Width 12.1 % (11.5-14.5); Segmented Neutrophils % 66.4 %; White Blood Count 8.1 K/mcL (4.3-11.1)
[2019-08-19 06:03] LABS: Calcium 8.9 mg/dL (8.6-10.3); Potassium 4.8 mEq/L (3.5-5.1)
[2019-08-19] MEDS: Isosorbide MONOnitrate (24 HR) 30 MG TAB.ER.24H PO SCH (09:17)
[2019-08-19] MEDS: Aspirin 81 MG TAB.CHEW PO SCH (09:17)
[2019-08-19] MEDS: Insulin DETEMIR 100 UNIT/ML X5UNITS SQ SCH ×2 (09:17→22:24)
[2019-08-19] MEDS: Azithromycin 250 MG TABLET PO SCH (09:17)
[2019-08-19] MEDS: Insulin LISPRO 300 UNITS/3 ML VIAL SQ SCH ×7 (09:18→22:25)
[2019-08-19] MEDS ORDERED: Ringers Solution, Lactated 1,000 ML IVC SCH (15:15)
--- NOTE | 2019-08-19 15:18 | Internal Med Progress Note ---
Hospitalist Progress Note - Encounter Date of Encounter: 08/19/19 Time of Encounter: 15:14 - Subjective Interval History: I have seen and evaluated the patient at bedside. Patient reported decreased urinary output since yesterday. denies chest pain, shortness of breath or abdominal pain. - Exam Vitals: Temp Pulse Resp BP Pulse Ox 98.3 F 74 17 108/64 96 08/19/19 10:45 08/19/19 10:45 08/19/19 10:45 08/19/19 10:45 08/19/19 10:45 Exam: Vitals: reviewed General: Alert and oriented x4. In mild distress due to decreased urinary output Cardiovascular: RRR, normal S1 & S2, no rubs, murmurs or gallops. Lungs: CTA, no wheezes or crackles. Abdomen: Obese, soft, non-tender, no rigidity. Extremities: chronic skin changes in the lower ext b/l, plus trace edema. Neurological: Normal cognition and motor skills. Rest of the physical exam is non contributory - Assessment and Plan (1) FELY (acute kidney injury) Current Visit: Yes Status: Acute Assessment and Plan: patient with worsening kidney function and as per patient with decreased urinary output for the past 24 hours. unclear if this fely is secondary to IV contrast of IV diuretics. retroperitoneal us ordered continue to hold diuretic will give a trial of IV hydration with LR@75ml/hr x1 litter and re-assess kidney function tomorrow morning UA to evaluate for cast. (2) Bronchitis Current Visit: Yes Status: Acute Assessment and Plan: patient empirically on azithromycin 500mg/PO daily. (3) Anemia Current Visit: Yes Status: Chronic Assessment and Plan: H&H stable. will continue to monitor H&H and transfuse per protocol. (4) CHF (congestive heart failure) Current Visit: Yes Status: Chronic Assessment and Plan: Patient with HFpEF. Not on acute exacerbation. With trace edema in the lower extremity. Continue to hold Bumex for the next 24 hours due to worsening kidney function. strict intake and output. plus daily weight. (5) Diabetes Current Visit: Yes Status: Chronic Assessment and Plan: Blood sugars optimally controlled. Levemir increased to 25 units twice a day, lispro increased to a unit before meals. Carbs controlled diet. (6) HTN (hypertension) Current Visit: Yes Status: Chronic Assessment and Plan: Blood pressures well controlled on isosorbide 30 mg by mouth daily. (7) RODNEY (obstructive sleep apnea) Current Visit: Yes Status: Chronic Assessment and Plan: c/w nocturnal Bipap (8) History of venous thromboembolism Current Visit: Yes Status: Chronic Assessment and Plan: resume xarelto 20mg/PO daily (9) Sepsis Current Visit: Yes Status: Resolved (10) Morbid obesity with BMI of 40.0-44.9, adult Current Visit: Yes Status: Chronic DVT Prophylaxis: patient on an oral anticoagulant due to Hx of DVT. - Summary of Assessment and Plan Summary of Assessment and Plan: Patient to remain in the hospital due to worsening fely. - Time Spent with Patient Total time spent is greater than 50% in coordination of care (as documented) at patient's floor/unit and/or counseling patient: Greater than 35 minutes (40) Plan of Care Discussed with: patient (and the nurse.) Internal Medicine: Result - Labs CBC & Chem 7: 08/19/19 05:16 08/19/19 05:16 Labs: Short CBC 08/19/19 Range/Units 05:16 WBC 8.1 (4.3-11.1) K/mcL Hgb 9.8 L (11.5-15.4) g/dL Hct 30.0 L (35.3-44.9) % Plt Count 210 (140-400) K/mcL Neutrophils # 5.3 (1.6-8.9) K/mcL BMP 08/19/19 05:16 Sodium 135 L Potassium 4.8 Chloride 101 Carbon Dioxide 25 BUN 66 H Creatinine 1.77 H Glucose 235 H Calcium 8.9 - ABG Interpretation ABG results: ABG ABG pH 7.47 pH Units (7.32-7.45) H 08/16/19 19:26 ABG pCO2 36 mmHg (35-45) 08/16/19 19:26 ABG pO2 57 mmHg (85-104) L 08/16/19 19:26 ABG O2 Saturation 91 % (95-98) L 08/16/19 19:26 PT/INR, D-dimer PT 12.9 Seconds (9.4-12.1) H 08/16/19 19:00 - VTE Documentation of Mechanical Device: Graduated compression elastic hosiery Consult Discharge Plan - Plan Referrals: Mina Spencer MD [Primary Care Provider] - (3) Anemia Qualifiers: Anemia type: unspecified type Qualified Code(s): D64.9 - Anemia, unspecified (4) CHF (congestive heart failure) Qualifiers: Heart failure type: diastolic Heart failure chronicity: chronic Qualified Code(s): I50.32 - Chronic diastolic (congestive) heart failure (5) Diabetes Qualifiers: Diabetes mellitus type: type 2 Diabetes mellitus terminal superintendent insulin use: wi thout group home use Diabetes mellitus complication status: without complication Qualified Code(s): E11.9 - Type 2 diabetes mellitus without complications (6) HTN (hypertension) Qualifiers: Hypertension type: essential hypertension Qualified Code(s): I10 - Essential (primary) hypertension (9) Sepsis Qualifiers: Sepsis type: sepsis due to unspecified organism Sepsis acute organ dysfunction status: without acute organ dysfunction Qualified Code(s): A41.9 - Sepsis, unspecified organism
[2019-08-19] MEDS ORDERED: *HR* Rivaroxaban 10 MG TABLET PO SCH (17:00)
--- NOTE | 2019-08-19 17:40 | Electrocardiograph Report ---
[place] [place] [facility] [place] Test Date: 2019-08-16 Pat Name: Kaylyn Lopez Department: [id number] Room: 2A32 Gender: F Ammunition Specialist: : [id number] Requested By: Vik Oseguera Order Number: [id number] Reading MD: Jose Ya Measurements Intervals [place] Rate: 108 P: 66 ME: 187 QRS: 69 QRSD: 76 T: 70 QT: 321 QTc: 433 Interpretive Statements Sinus tachycardia Electronically Signed On 08-19-2019 17:38:11 EDT by Jose Ya
[2019-08-19] MEDS: Apixaban 5 MG TABLET PO SCH (22:24)
[2019-08-20 08:13] LABS: Basophils % 0.7 %; Eosinophils # 0.2 K/mcL (0.0-0.6); Hematocrit 32.5 % (35.3-44.9); Hemoglobin 10.7 g/dL (11.5-15.4); Immature Granulocytes % 0.7 % (0-4); Lymphocytes # 1.4 K/mcL (0.6-4.6); Lymphocytes % 24.5 %; Mean Corpuscular HGB Conc 32.9 g/dL (31.6-35.5); Mean Corpuscular Hemoglobin 28.9 pg (28.0-33.3); Mean Corpuscular Volume 87.8 fL (83.0-100.0); Monocytes # 0.4 K/mcL (0.0-1.3); Monocytes % 7.1 %; Neutrophils # 3.7 K/mcL (1.6-8.9); Platelet Count 255 K/mcL (140-400); Red Cell Distribution Width 12.1 % (11.5-14.5); White Blood Count 5.8 K/mcL (4.3-11.1)
[2019-08-20 08:33] LABS: BUN/Creatinine Ratio 56 (6-26); Blood Urea Nitrogen 59 mg/dL (8-23); Calcium 9.3 mg/dL (8.6-10.3); Carbon Dioxide 26 mEq/L (23-29); Chloride 102 mEq/L (98-107); Glucose 169 mg/dL (70-105); Magnesium 2.2 mg/dL (1.6-2.6); Osmolality,Calculated 304 (280-300); Phosphorous 4.1 mg/dL (2.7-4.5); Potassium 4.5 mEq/L (3.5-5.1); Sodium 137 mEq/L (136-145); eGFR For African Americans > 60 (> 60); eGFR For Non-African Americans 51 (> 60)
[2019-08-20] MEDS: Azithromycin 250 MG TABLET PO SCH (08:56)
[2019-08-20] MEDS: Apixaban 5 MG TABLET PO SCH (08:57)
[2019-08-20] MEDS: Aspirin 81 MG TAB.CHEW PO SCH (08:57)
[2019-08-20] MEDS: Insulin DETEMIR 100 UNIT/ML X5UNITS SQ SCH ×2 (08:57→21:04)
[2019-08-20] MEDS: Isosorbide MONOnitrate (24 HR) 30 MG TAB.ER.24H PO SCH (08:57)
[2019-08-20] MEDS: Insulin LISPRO 300 UNITS/3 ML VIAL SQ SCH ×7 (08:57→20:56)
--- NOTE | 2019-08-20 10:19 | Internal Med Progress Note ---
Hospitalist Progress Note - Encounter Date of Encounter: 08/20/19 Time of Encounter: 10:17 - Subjective Interval History: I have seen and evaluated the patient at bedside. patient reported feeling short of breath with mild exertion. denies chest pain, nausea, vomiting or abdominal pain. - Exam Vitals: Temp Pulse Resp BP Pulse Ox 98.1 F 76 16 146/82 94 08/20/19 07:18 08/20/19 07:18 08/20/19 07:18 08/20/19 07:18 08/20/19 07:18 Exam: Vitals: reviewed General: Alert and oriented x4. In mild distress due to shortness of breath. Cardiovascular: RRR, normal S1 & S2, no rubs, murmurs or gallops. Lungs: CTA, no wheezes or crackles. Abdomen: Obese, soft, non-tender, no rigidity. NABS in all 4 quadrants. Extremities: chronic skin changes in the lower ext b/l, plus trace edema. Neurological: No focal neurological abnormalities. Rest of the physical exam is non contributory - Assessment and Plan (1) CHF (congestive heart failure) Current Visit: Yes Status: Chronic Assessment and Plan: patient reporting exertional dyspnea. Minimal improvement in her shortness of breath when compared to admission. 350 ml fluid balance positive. will resume Bumex 2gm/IV daily strict intake and output plus daily weight fluids restriction to 1.5 litters a day. (2) Bronchitis Current Visit: Yes Status: Acute Assessment and Plan: Patient reported still feeling short of breath, chest is clear to auscultation. shortness of breath most likely related to volume than acute bronchitis. dc azithromycin after 5 doses. bronchodilators q4RT PRN incentive spirometry. (3) EFLY (acute kidney injury) Current Visit: Yes Status: Resolved (4) Anemia Current Visit: Yes Status: Chronic Assessment and Plan: H&H stable. continue to follow up. will transfuse per protocol. (5) Diabetes Current Visit: Yes Status: Chronic Assessment and Plan: Blood sugar well controlled. continue current insulin coverage. plus carbs controlled diet. (6) HTN (hypertension) Current Visit: Yes Status: Chronic Assessment and Plan: Blood pressures well controlled on isosorbide. Home dose of Bumex resumed. (7) RODNEY (obstructive sleep apnea) Current Visit: Yes Status: Chronic Assessment and Plan: Nocturnal CPAP (8) History of venous thromboembolism Current Visit: Yes Status: Chronic Assessment and Plan: dc eliquis as FELY has resolved. will resume xarelto 20mg/PO daily. (9) Sepsis Current Visit: Yes Status: Resolved (10) Morbid obesity with BMI of 40.0-44.9, adult Current Visit: Yes Status: Chronic DVT Prophylaxis: Patient on an oral anticoagulant. - Summary of Assessment and Plan Summary of Assessment and Plan: Patient to remain in the hospital due to acute HFpEF exacerbation on IV diuretics. - Time Spent with Patient Total time spent is greater than 50% in coordination of care (as documented) at patient's floor/unit and/or counseling patient: Greater than 35 minutes (45) Plan of Care Discussed with: patient (and the nurse.) Internal Medicine: Result - Labs CBC & Chem 7: 08/20/19 07:50 08/20/19 07:50 Labs: Short CBC 08/20/19 Range/Units 07:50 WBC 5.8 (4.3-11.1) K/mcL Hgb 10.7 L (11.5-15.4) g/dL Hct 32.5 L (35.3-44.9) % Plt Count 255 (140-400) K/mcL Neutrophils # 3.7 (1.6-8.9) K/mcL BMP 08/20/19 07:50 Sodium 137 Potassium 4.5 Chloride 102 Carbon Dioxide 26 BUN 59 H Creatinine 1.06 Glucose 169 H Calcium 9.3 - ABG Interpretation ABG results: ABG ABG pH 7.47 pH Units (7.32-7.45) H 08/16/19 19:26 ABG pCO2 36 mmHg (35-45) 08/16/19 19:26 ABG pO2 57 mmHg (85-104) L 08/16/19 19:26 ABG O2 Saturation 91 % (95-98) L 08/16/19 19:26 PT/INR, D-dimer PT 12.9 Seconds (9.4-12.1) H 08/16/19 19:00 - Impressions Impressions Retroperitoneum Ultrasound 08/19/19 21:42 IMPRESSION: Nonspecific right perinephric fluid. Otherwise negative renal ultrasound. D/ / Sal Machuca MD / Sal Machuca MD Interpreting Provider: Sal Machuca MD - VTE Documentation of Mechanical Device: Graduated compression elastic hosiery Consult Discharge Plan - Plan Referrals: Mina Spencer MD [Primary Care Provider] - (1) CHF (congestive heart failure) Qualifiers: Heart failure type: diastolic Heart failure chronicity: chronic Qualified Code(s): I50.32 - Chronic diastolic (congestive) heart failure (4) Anemia Qualifiers: Anemia type: unspecified type Qualified Code(s): D64.9 - Anemia, unspecified (5) Diabetes Qualifiers: Diabetes mellitus type: type 2 Diabetes mellitus exterminator termite insulin use: without exterminator termite use Diabetes mellitus complication status: without complication Qualified Code(s): E11.9 - Type 2 diabetes mellitus without complications (6) HTN (hypertension) Qualifiers: Hypertension type: essential hypertension Qualified Code(s): I10 - Essential (primary) hypertension (9) Sepsis Qualifiers: Sepsis type: sepsis due to unspecified organism Sepsis acute organ dysfunction status: without acute organ dysfunction Qualified Code(s): A41.9 - Sepsis, unspecified organism
[2019-08-20] MEDS ORDERED: Ipratropium/Albuterol Neb 3 ML IH PRN (10:20)
[2019-08-20] MEDS: Bumetanide 1 MG/4 ML VIAL IVP SCH (12:18)
[2019-08-20] MEDS: *HR* Rivaroxaban 10 MG TABLET PO SCH (16:51)
[2019-08-20] MEDS ORDERED: Apixaban 5 MG TABLET PO SCH ×2 (21:00)
[2019-08-21 04:29] LABS: Basophils % 0.7 %; Eosinophils # 0.2 K/mcL (0.0-0.6); Eosinophils % 3.2 %; Hematocrit 29.4 % (35.3-44.9); Hemoglobin 9.6 g/dL (11.5-15.4); Immature Granulocytes % 0.5 % (0-4); Lymphocytes # 1.5 K/mcL (0.6-4.6); Lymphocytes % 25.8 %; Mean Corpuscular HGB Conc 32.7 g/dL (31.6-35.5); Mean Corpuscular Hemoglobin 28.9 pg (28.0-33.3); Mean Corpuscular Volume 88.6 fL (83.0-100.0); Mean Platelet Volume 9.9 fL (9.4-12.4); Monocytes # 0.5 K/mcL (0.0-1.3); Monocytes % 7.9 %; Neutrophils # 3.7 K/mcL (1.6-8.9); Platelet Count 241 K/mcL (140-400); Red Blood Count 3.32 M/mcL (3.82-4.97); Segmented Neutrophils % 61.9 %; White Blood Count 5.9 K/mcL (4.3-11.1)
[2019-08-21 04:45] LABS: BUN/Creatinine Ratio 54 (6-26); Blood Urea Nitrogen 54 mg/dL (8-23); Calcium 9.3 mg/dL (8.6-10.3); Carbon Dioxide 26 mEq/L (23-29); Chloride 103 mEq/L (98-107); Glucose 158 mg/dL (70-105); Magnesium 2.1 mg/dL (1.6-2.6); Osmolality,Calculated 308 (280-300); Phosphorous 4.5 mg/dL (2.7-4.5); Potassium 4.7 mEq/L (3.5-5.1); Sodium 140 mEq/L (136-145); eGFR For African Americans > 60 (> 60); eGFR For Non-African Americans 55 (> 60)
[2019-08-21] MEDS: Insulin LISPRO 300 UNITS/3 ML VIAL SQ SCH ×7 (07:56→21:03)
[2019-08-21] MEDS: Isosorbide MONOnitrate (24 HR) 30 MG TAB.ER.24H PO SCH (08:04)
[2019-08-21] MEDS: Aspirin 81 MG TAB.CHEW PO SCH (08:04)
[2019-08-21] MEDS: Bumetanide 1 MG/4 ML VIAL IVP SCH (08:04)
[2019-08-21] MEDS: Insulin DETEMIR 100 UNIT/ML X5UNITS SQ SCH ×2 (08:04→20:03)
[2019-08-21 08:42] LABS: Bilirubin,Urine Negative (Negative); Blood,Urine Small (Negative); Clarity,Urine Clear (Clear); Color,Urine Yellow (Yellow); Glucose,Urine (UA) Normal (Normal); Ketones,Urine Negative (Negative); Leukocyte Esterase,Urine Negative (Negative); Nitrite,Urine Negative (Negative); Protein,Urine 100 mg/dL (Neg-Trace); Specific Gravity,Urine 1.017 (1.010-1.025); Urobilinogen,Urine Normal (Normal)
[2019-08-21 08:45] LABS: Bacteria,Urine None Seen per hpf (None-Few); Hyaline Casts,Urine None Seen per lpf (None-Few); Squamous Epithelial Cell,Urine Many per lpf (None-Few); WBC,Urine 0-3 per hpf (0-3)
[2019-08-21 09:36] LABS: Estimated Average Glucose 278 mg/dl
--- NOTE | 2019-08-21 12:27 | Internal Med Progress Note ---
Hospitalist Progress Note - Encounter Date of Encounter: 08/21/19 Time of Encounter: 12:26 - Subjective Interval History: I have seen and evaluated the patient at bedside. patient reported her breathing is improving, denies chest pain, nausea or vomiting. - Exam Vitals: Temp Pulse Resp BP Pulse Ox 98.3 F 76 17 117/69 90 08/21/19 11:11 08/21/19 11:11 08/21/19 11:11 08/21/19 11:11 08/21/19 11:11 Exam: Vitals: reviewed General: Alert and oriented x4. In no distress Cardiovascular: RRR, normal S1 & S2, no rubs, murmurs or gallops. Lungs: CTA, no wheezes or crackles. Abdomen: Obese, soft, non-tender, no rigidity. NABS in all 4 quadrants. Extremities: chronic skin changes in the lower ext b/l, plus trace edema. Neurological: No focal neurological abnormalities. Rest of the physical exam is non contributory - Assessment and Plan (1) CHF (congestive heart failure) Current Visit: Yes Status: Chronic Assessment and Plan: patient reported improvement on her breathing. denies shortness of breath today total negative balance 3.1 litters plan patient would benefit for a least 24 more hours of IV diuretics. c/w Bumex 2mg/IV daily for the next 24 hours. fluid restrictive strategies to 1.5 litters a day, plus daily weight. (2) Bronchitis Current Visit: Yes Status: Resolved Assessment and Plan: Continue bronchodilators every 4 hours when necessary. (3) Anemia Current Visit: Yes Status: Chronic Assessment and Plan: H&h stable. continue to monitor. will transfuse per protocol. (4) Diabetes Current Visit: Yes Status: Chronic Assessment and Plan: Blood sugar is well controlled on Levemir 25 units twice a day, and lispro 8 units before meals. Plus carb controlled diet. (5) HTN (hypertension) Current Visit: Yes Status: Chronic Assessment and Plan: Blood pressures well controlled. Plan c/w isosorbide, and Bumex 2mg/IV daily. (6) RODNEY (obstructive sleep apnea) Current Visit: Yes Status: Chronic Assessment and Plan: c/w Nocturnal CPAP (7) History of venous thromboembolism Current Visit: Yes Status: Chronic Assessment and Plan: c/w xarelto 20mg/PO daily. (8) Sepsis Current Visit: Yes Status: Resolved (9) Morbid obesity with BMI of 40.0-44.9, adult Current Visit: Yes Status: Chronic (10) FELY (acute kidney injury) Current Visit: Yes Status: Resolved (11) Hyperlipidemia Current Visit: Yes Status: Chronic Assessment and Plan: Continue simvastatin 40 mg by mouth at bedtime. DVT Prophylaxis: Patient on an oral anticoagulant due to his DVT. - Summary of Assessment and Plan Summary of Assessment and Plan: Patient to remain in the hospital due to CHF exacerbation, on IV steroids. - Time Spent with Patient Total time spent is greater than 50% in coordination of care (as documented) at patient's floor/unit and/or counseling patient: Greater than 35 minutes (40) Plan of Care Discussed with: patient (and the nurse.) Internal Medicine: Result - Labs CBC & Chem 7: 08/21/19 04:09 08/21/19 04:09 Labs: Short CBC 08/21/19 Range/Units 04:09 WBC 5.9 (4.3-11.1) K/mcL Hgb 9.6 L (11.5-15.4) g/dL Hct 29.4 L (35.3-44.9) % Plt Count 241 (140-400) K/mcL Neutrophils # 3.7 (1.6-8.9) K/mcL BMP 08/21/19 04:09 Sodium 140 Potassium 4.7 Chloride 103 Carbon Dioxide 26 BUN 54 H Creatinine 1.00 Glucose 158 H Calcium 9.3 Urine 08/21/19 Range/Units 08:10 Urine Color Yellow (Yellow) Urine Clarity Clear (Clear) Urine pH 6.0 (5.0-8.0) pH Units Ur Specific Sayre 1.017 (1.010-1.025) Urine Protein 100 H (Neg-Trace) mg/dL Urine Glucose (UA) Normal (Normal) mg/dL - ABG Interpretation ABG results: ABG ABG pH 7.47 pH Units (7.32-7.45) H 08/16/19 19:26 ABG pCO2 36 mmHg (35-45) 08/16/19 19:26 ABG pO2 57 mmHg (85-104) L 08/16/19 19:26 ABG O2 Saturation 91 % (95-98) L 08/16/19 19:26 PT/INR, D-dimer PT 12.9 Seconds (9.4-12.1) H 08/16/19 19:00 - VTE Documentation of Mechanical Device: Graduated compression elastic hosiery Consult Discharge Plan - Plan Referrals: Mina Spencer MD [Primary Care Provider] - 08/31/19 1:30 pm (Please follow up as schedule....) (1) CHF (congestive heart failure) Qualifiers: Heart failure type: diastolic Heart failure chronicity: chronic Qualified Code(s): I50.32 - Chronic diastolic (congestive) heart failure (3) Anemia Qualifiers: Anemia type: unspecified type Qualified Code(s): D64.9 - Anemia, unspecified (4) Diabetes Qualifiers: Diabetes mellitus type: type 2 Diabetes mellitus [facility] insulin use: without [facility] use Diabetes mellitus complication status: without complication Qualified Code(s): E11.9 - Type 2 diabetes mellitus without complications (5) HTN (hypertension) Qualifiers: Hypertension type: essential hypertension Qualified Code(s): I10 - Essential (primary) hypertension (8) Sepsis Qualifiers: Sepsis type: sepsis due to unspecified organism Sepsis acute organ dysfunction status: without acute organ dysfunction Qualified Code(s): A41.9 - Sepsis, unspecified organism (11) Hyperlipidemia Qualifiers: Hyperlipidemia type: unspecified Qualified Code(s): E78.5 - Hyperlipidemia, unspecified
[2019-08-21] MEDS: *HR* Rivaroxaban 10 MG TABLET PO SCH (17:04)
[2019-08-22 05:43] LABS: BUN/Creatinine Ratio 50 (6-26); Blood Urea Nitrogen 51 mg/dL (8-23); Calcium 9.3 mg/dL (8.6-10.3); Carbon Dioxide 29 mEq/L (23-29); Chloride 102 mEq/L (98-107); Glucose 88 mg/dL (70-105); Osmolality,Calculated 303 (280-300); Phosphorous 5.3 mg/dL (2.7-4.5); Potassium 4.5 mEq/L (3.5-5.1); Sodium 140 mEq/L (136-145); eGFR For African Americans > 60 (> 60); eGFR For Non-African Americans 54 (> 60)
[2019-08-22 07:09] VITALS: BP 136/83
[2019-08-22] MEDS: Insulin LISPRO 300 UNITS/3 ML VIAL SQ SCH ×2 (08:08→10:41)
[2019-08-22] MEDS: Isosorbide MONOnitrate (24 HR) 30 MG TAB.ER.24H PO SCH (10:42)
[2019-08-22] MEDS: Bumetanide 1 MG/4 ML VIAL IVP SCH (10:42)
[2019-08-22] MEDS: Aspirin 81 MG TAB.CHEW PO SCH (10:42)
--- NOTE | 2019-08-22 10:42 | Discharge Summary ---
Date of Encounter: 08/22/19 Time of Encounter: 10:39 - Discharge Diagnosis (1) CHF (congestive heart failure) Priority: Primary Status: Chronic Qualifiers: Heart failure type: diastolic Heart failure chronicity: chronic Qualified Code(s): I50.32 - Chronic diastolic (congestive) heart failure (2) Bronchitis Priority: Secondary Status: Resolved (3) Anemia Priority: Secondary Status: Chronic Qualifiers: Anemia type: unspecified type Qualified Code(s): D64.9 - Anemia, unspecified (4) Diabetes Priority: Secondary Status: Chronic Qualifiers: Diabetes mellitus type: type 2 Diabetes mellitus long term care pharmacist insulin use: without group home use Diabetes mellitus complication status: without complication Qualified Code(s): E11.9 - Type 2 diabetes mellitus without complications (5) HTN (hypertension) Priority: Secondary Status: Chronic Qualifiers: Hypertension type: essential hypertension Qualified Code(s): I10 - Essential (primary) hypertension (6) RODNEY (obstructive sleep apnea) Priority: Secondary Status: Chronic (7) History of venous thromboembolism Priority: Secondary Status: Chronic (8) Sepsis Priority: Secondary Status: Resolved Qualifiers: Sepsis type: sepsis due to unspecified organism Sepsis acute organ dysfunction status: without acute organ dysfunction Qualified Code(s): A41.9 - Sepsis, unspecified organism (9) Morbid obesity with BMI of 40.0-44.9, adult Priority: Secondary Status: Chronic (10) FELY (acute kidney injury) Priority: Secondary Status: Resolved (11) Hyperlipidemia Priority: Secondary Status: Chronic Qualifiers: Hyperlipidemia type: unspecified Qualified Code(s): E78.5 - Hyperlipidemia, unspecified Hospital course: Ms. Lopez is a 69 year old female PMH coronary artery disease, diabetes, hyperlipidemia, HFpEF, obstructive sleep apnea who is brought to the emergency room with complaints of generalized body aches, facial congestion, chest pain, chills, headaches and shortness of breath that has been present for the last 2-3 days. On arrival she was found febrile at 101.6 and tachycardic. She was also hypoxic and required high volume nasal cannula. A chest x-ray was done which reported findings of pulmonary vascular congestion. Respiratory panel done was positive for Entero/Rhino virus. Patient was admitted to the hospital due to acute bronchitis, chf exacerbation. Patient was managed with IV steroids and empiric antibiotics. Started with IV diuretics w/ 4 litters of fluids removed. Patient acute symptoms on presentation resolved, and patient is clinically stable to be discharged home. - Time Spent with Patient Total time spent providing and/or coordinating discharge services: Time spent: Greater than 30 minutes (35) - Discharge Medications Prescriptions: Continued Simvastatin [Zocor] 40 mg PO HS Spironolactone [Aldactone] 25 mg PO DAILY Duloxetine HCl 90 mg PO HS Rivaroxaban [Xarelto] 20 mg PO QPM Isosorbide MONOnitrate [Isosorbide Mononitrate ER] 30 mg PO DAILY LORazepam [Ativan] 0.5 mg PO DAILY PRN PRN Reason: Anxiety Lisinopril [Zestril] 20 mg PO BID Bumetanide [Bumex] 2 mg PO DAILY Liraglutide [Victoza 3-Martin] 0.6 mg SQ DAILY Aspirin 81 mg PO DAILY Home Medications: Aspirin 81 mg PO DAILY 08/16/19 [History] Bumetanide [Bumex] 2 mg PO DAILY 08/16/19 [History] Duloxetine HCl 90 mg PO HS 08/16/19 [History] Isosorbide MONOnitrate [Isosorbide Mononitrate ER] 30 mg PO DAILY 08/16/19 [History] LORazepam [Ativan] 0.5 mg PO DAILY PRN 08/16/19 [History] Liraglutide [Victoza 3-Martin] 0.6 mg SQ DAILY 08/16/19 [History] Lisinopril [Zestril] 20 mg PO BID 08/16/19 [History] Rivaroxaban [Xarelto] 20 mg PO QPM 08/16/19 [History] Simvastatin [Zocor] 40 mg PO HS 08/16/19 [History] Spironolactone [Aldactone] 25 mg PO DAILY 08/16/19 [History] Allergies/Adverse Reactions: Allergy/AdvReac Type Severity Reaction Status Date / Time Amoxicillin Allergy Irritable Verified 08/16/19 19:32 Date of admission: 08/21/19 13:59 Primary care physician: Mina Spencer MD Consults: 08/18/19 10:07 Consult to Physical Therapy [CONS] Routine Comment: Evaluate, develop and implement POC Reason for Consult: Very weak only able to walk 4 minutes of 6 minute walk test, deconditioned. Does patient have active BEDREST order?: No Is patient medically & hemodynamically stable?: Yes 08/18/19 10:08 Consult to Occupational Therapy [CONS] Routine Comment: Evaluate, develop and implement POC Reason for Consult: deconditoned. Does patient have active BEDREST order?: No Is patient medically & hemodynamically stable?: Yes - Constitutional Vitals: Temp Pulse Resp BP Pulse Ox 97.7 F 76 18 136/83 96 08/22/19 07:01 08/22/19 07:01 08/22/19 07:01 08/22/19 07:01 08/22/19 07:01 Exam: Vitals: reviewed General: Alert and oriented x4. In no distress Cardiovascular: RRR, normal S1 & S2, no rubs, murmurs or gallops. Lungs: CTA, no wheezes or crackles. Abdomen: Obese, soft, non-tender, no rigidity. NABS in all 4 quadrants. Extremities: chronic skin changes in the lower ext b/l, plus trace edema. Neurological: No focal neurological abnormalities. Rest of the physical exam is non contributory - Patient Status Disposition: Home Health Service Condition: Good Functional capacity at discharge: independent ambulation Overall status at discharge: patient is back to baseline - Discharge Instructions Follow Up With: Mina Spencer MD [Primary Care Provider] - 08/31/19 1:30 pm (Please follow up as schedule....) - Diet and Activity Activity: as per physical therapy Diet: diabetic diet, low salt diet - VTE Documentation of Mechanical Device: Graduated compression elastic hosiery
--- NOTE | 2019-08-22 10:47 | Physician Discharge Referral ---
Home Health/Hosp Referral Info Transfer to: Home Health - Diagnosis (1) CHF (congestive heart failure) Priority: Primary Status: Chronic (2) Bronchitis Priority: Primary Status: Resolved (3) Anemia Priority: Secondary Status: Chronic (4) Diabetes Priority: Secondary Status: Chronic (5) HTN (hypertension) Priority: Secondary Status: Chronic (6) RODNEY (obstructive sleep apnea) Priority: Secondary Status: Chronic (7) History of venous thromboembolism Priority: Secondary Status: Chronic (8) Sepsis Priority: Secondary Status: Resolved (9) Morbid obesity with BMI of 40.0-44.9, adult Priority: Secondary Status: Chronic (10) FELY (acute kidney injury) Priority: Secondary Status: Resolved (11) Hyperlipidemia Priority: Secondary Status: Chronic - Respiratory Orders None Smoking Cessation: Smoking cessation has been advised. For more information, call the [place] Tobacco Quit Line at 9-765-CHDF-NOW. - Diet/Nutrition Diet/Nutrition Orders: Regular - Activity Activity Orders: Ambulate - Services Needed Following services are medically necessary services: Home Health Aide, Physical Therapy, Occupational Therapy - Transfer Medications Home Medications: Aspirin 81 mg PO DAILY 08/16/19 [History] Bumetanide [Bumex] 2 mg PO DAILY 08/16/19 [History] Duloxetine HCl 90 mg PO HS 08/16/19 [History] Isosorbide MONOnitrate [Isosorbide Mononitrate ER] 30 mg PO DAILY 08/16/19 [History] LORazepam [Ativan] 0.5 mg PO DAILY PRN 08/16/19 [History] Liraglutide [Victoza 3-Martin] 0.6 mg SQ DAILY 08/16/19 [History] Lisinopril [Zestril] 20 mg PO BID 08/16/19 [History] Rivaroxaban [Xarelto] 20 mg PO QPM 08/16/19 [History] Simvastatin [Zocor] 40 mg PO HS 08/16/19 [History] Spironolactone [Aldactone] 25 mg PO DAILY 08/16/19 [History] Allergies/Adverse Reactions: Allergy/AdvReac Type Severity Reaction Status Date / Time Amoxicillin Allergy Irritable Verified 08/16/19 19:32 Certification: Further, I certify that my clinical findings support that this patient is homebound (i.e. absences from home require considerable and taxing effort and are for medical reasons or confucianist services or infrequently or short duration when for other reasons) because: Homebound Reason: Patient requires assistance of a person or device to safely leave home Attestation: My signature below is to certify that this patient is under my care and that I, or nurse practitioner, or a physician's behavioral assistant working with me, has a [id number] encounter with this patient.
== END 2019-08-22 11:34 | disposition home health service (06) | DRG 871 ==
LOC: EMEROOARM 18:35 → 2ANU 18:35 → SUATTDRO 21:37 → 2ANU 22:43
PROVIDERS: ADMIT Internal Medicine; ATTEND Internal Medicine